=== PATIENT | male | born 1975 ===

== ENCOUNTER 2024-09-10 07:25 | Emergency (ER) | payer BC ==
[2024-09-10] MEDS: Ketorolac 60 MG/2 ML SDV IM ONE (08:36)
== END 2024-09-10 09:18 | disposition home or self-care (01) ==
LOC: JD.ED 07:25
DX: M25.551 Pain in right hip (principal); K21.9 Gastro-esophageal reflux disease without esophagitis; F17.210 Nicotine dependence, cigarettes, uncomplicated; Z88.8 Allergy status to other drugs, medicaments and biological substances; Z79.899 Other long term (current) drug therapy
CPT/HCPCS: 73502; 96372; 99283; J1885; 99282